=== PATIENT | female | born 1990 | race Caucasian/White ===

== ENCOUNTER 2023-05-20 14:08 | Emergency (ER) | payer MEDICAID ==
[2023-05-20] MEDS: Albuterol 0.083% 2.5 MG/3 ML Neb Soln NEB ONE (14:25)
[2023-05-20] MEDS: Budesonide 0.5 MG/2 ML Neb Susp NEB ONE (14:32)
[2023-05-20] MEDS ORDERED: Albuterol 90 MCG/6.7 GM Inhaler INH ONE (15:00)
[2023-05-20] MEDS ORDERED: predniSONE 20 MG Tab ONE (15:00)
== END 2023-05-20 15:15 | disposition home or self-care (01) ==
LOC: LB.ED 14:08
DX: J45.901 Unspecified asthma with (acute) exacerbation (principal); Z88.1 Allergy status to other antibiotic agents; Z88.8 Allergy status to other drugs, medicaments and biological substances
CPT/HCPCS: 71045; 94640; 99285; A9270-GY; J7512

== ENCOUNTER 2025-06-09 13:10 | Emergency (ER) | payer BC ==
[2025-06-09] MEDS ORDERED: Sodium Chloride 0.9% 10 ML Syringe FLUSH PRN (13:36)
[2025-06-09 13:52] LABS: BASOPHILS ABSOLUTE AUTO 0.03 K/uL (0.02-0.10); BASOPHILS PERCENT AUTO 0.4 % (0.0-0.5); EOSINOPHILS ABSOLUTE AUTO 0.15 K/uL (0.04-0.40); EOSINOPHILS PERCENT AUTO 2.1 % (1.0-5.0); LYMPHOCYTES ABSOLUTE AUTO 2.16 K/uL (1.50-4.00); LYMPHOCYTES PERCENT AUTO 29.7 % (20.0-40.0); MEAN PLATELET VOLUME 11.0 fL (6.0-10.0); MONOCYTES ABSOLUTE AUTO 0.39 K/uL (0.20-0.80); MONOCYTES PERCENT AUTO 5.4 % (3.0-10.0); NEUTROPHILS ABSOLUTE AUTO 4.55 K/uL (2.00-7.50); NEUTROPHILS PERCENT AUTO 62.4 % (45.0-70.0); PLATELET COUNT,PLT 187 K/uL (150-500); RED BLOOD CELL COUNT 4.59 M/uL (3.80-5.80); RED CELL DISTRIBUTION WIDTH 12.6 % (11.0-16.0); WHITE BLOOD CELL COUNT,WBC 7.3 K/uL (4.0-11.0)
[2025-06-09 14:16] LABS: A/G RATIO 1.1 (0.8-2.0); ALANINE AMINOTRANSFERASE,ALT 48 U/L (12-78); ASPARTATE AMNIOTRANSFERASE,AST 15 U/L (15-37); BILIRUBIN TOTAL 0.5 mg/dL (0.0-1.0); BLOOD UREA NITROGEN,BUN 12 mg/dL (8-26); CARBON DIOXIDE,CO2 26.0 mmol/L (21.0-32.0); CHLORIDE,CL 107 mmol/L (98-107); CREATININE 0.74 mg/dL (0.55-1.02); EST CRCL DRUG DOSING (CG) 98.39 mL/min; ESTIMATED GFR 107 mL/min (>60); GLUCOSE RANDOM 120 mg/dL (74-100); PHOSPHORUS 3.8 mg/dL (2.5-4.9); POTASSIUM,K 4.0 mmol/L (3.5-5.1); PROTEIN TOTAL,TP 6.6 g/dL (6.4-8.2); SODIUM,NA 143 mmol/L (136-145)
[2025-06-09 14:25] LABS: TROPONIN I HIGH SENSITIVITY < 4.0 pg/ml (<=60.4)
== END 2025-06-09 15:30 | disposition home or self-care (01) ==
LOC: LB.ED 13:10
DX: R00.2 Palpitations (principal); I10 Essential (primary) hypertension; Z88.8 Allergy status to other drugs, medicaments and biological substances; Z79.899 Other long term (current) drug therapy
CPT/HCPCS: 36415; 80053; 83735; 84100; 84484; 85025; 85379; 93005; 93010; 99283; 99285